=== PATIENT | female | born 1940 | race Caucasian/White ===

== ENCOUNTER 2016-12-22 10:34 | Emergency (ER) | payer MEDICARE, BC ==
--- NOTE | 2016-12-22 11:01 | EDM.PDOC ---
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 BP and pulse were nl. Please see nursing vitals report. No N/V/D or any acute medical issues. 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) - Related Data Allergies Allergy/AdvReac Type Severity Reaction Status Date / Time No Known Allergies Allergy Verified 10/13/13 08:25 Home Meds: Home Meds Levothyroxine [Synthroid] 50 mcg PO ACBRK 10/13/13 [History] Calcium Carbonate [Tums] 1 tab PO ASDIRECTED 01/26/14 [History] Ibuprofen [Advil] 2 tab PO TID 01/26/14 [History] Multivitamin [Multivitamins] 1 tab PO DAILY 01/26/14 [History] Gabapentin [Neurontin] 300 mg PO TID 01/27/14 [History] Ciprofloxacin HCl [Cipro] 500 mg PO BID #20 tablet 12/22/16 [Rx] Social & Family History - Tobacco Use Smoking Status *Q: Never Smoker - Alcohol Use Days Per Week of Alcohol Use: 0 - Recreational Drug Use Recreational Drug Use: No ED ROS GENERAL - Review of Systems Review Of Systems: See Below Constitutional: Reports: No Symptoms HEENT: Reports: No Symptoms Respiratory: Reports: No Symptoms Cardiovascular: Reports: No Symptoms Endocrine: Reports: No Symptoms GI/Abdominal: Reports: No Symptoms : Reports: No Symptoms Musculoskeletal: Reports: No Symptoms Skin: Reports: No Symptoms Neurological: Reports: No Symptoms Psychiatric: Reports: No Symptoms Hematologic/Lymphatic: Reports: No Symptoms Immunologic: Reports: No Symptoms ED EXAM, RENAL/ - Physical Exam Exam: See Below Exam Limited By: No Limitations General Appearance: Alert, WD/WN, No Apparent Distress Eye Exam: Bilateral Eye: Normal Inspection Ears: Normal External Exam Nose: Normal Inspection Throat/Mouth: Normal Inspection Head: Atraumatic, Normocephalic Neck: Normal Inspection, Supple, Non-Tender Respiratory/Chest: No Respiratory Distress, Lungs Clear, Normal Breath Sounds Cardiovascular: Normal Peripheral Pulses, Regular Rate, Rhythm, No Edema GI/Abdominal: Normal Bowel Sounds, Other (suprapubic tenderness) (Female) Exam: Deferred Rectal (Female) Exam: Deferred Back Exam: Normal Inspection Extremities: Normal Inspection Neurological: Alert, Oriented, CN II-XII Intact, Normal Cognition Psychiatric: Normal Affect, Normal Mood Skin Exam: Warm, Dry, Intact Lymphatic: No Adenopathy Course - Vital Signs Text/Narrative:: 76 years old w f came to the ed with her SO due to an 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 BP and pulse were nl. Please see nursing vitals report. No N/V/D or any acute medical issues. PE: Suprapubic tenderness Labs: UA pos for UTI Impression: UTI Tx: Cipro Reexam: Improved Plan: D/C with instructions - Orders/Labs/Meds Labs: Laboratory Tests 12/22/16 Range/Units 11:06 Urine Color Yellow (YELLOW) Urine Appearance Slightly cloudy (CLEAR) Urine pH 5.0 (5.0-6.5) Ur Specific [place] 1.015 (1.010-1.025) Urine Protein Negative (NEGATIVE) mg/dL Urine Glucose (UA) Normal (NEGATIVE) mg/dL Urine Ketones Negative (NEGATIVE) mg/dL Urine Occult Blood Negative (NEGATIVE) Urine Nitrite Positive H (NEGATIVE) Urine Bilirubin Negative (NEGATIVE) Urine Urobilinogen Normal (NEGATIVE) mg/dL Ur Leukocyte Esterase Large H (NEGATIVE) Urine RBC 0-5 (0) Urine WBC >100 H (0) Ur Squamous Epith Cells Rare (NS,R,O) Urine Bacteria Many H (NS) Departure - Departure Time of Disposition: 11:29 Disposition: Home, Self-Care 01 Condition: Good Clinical Impression: UTI (urinary tract infection) Qualifiers: Urinary tract infection type: acute cystitis Hematuria presence: without hematuria Qualified Code(s): N30.00 - Acute cystitis without hematuria - Discharge Information Prescriptions: Ciprofloxacin HCl [Cipro] 500 mg PO BID #20 tablet Instructions: Urinary Tract Infection, Adult Referrals: Iván Etienne MD [Primary Care Provider] - Forms: ED Department Discharge Additional Instructions: Please increase water intake, please take the meds as recommended, please f/u, come back if the symptoms get worse acutely
== END 2016-12-22 11:41 | disposition home or self-care (01) ==
LOC: FB.ED 10:34
DX: N30.00 Acute cystitis without hematuria (principal)
CPT/HCPCS: 81001; 87086; 87088; 87186; 99283

== ENCOUNTER 2018-04-02 07:09 | Day surgery (SDC) | payer BC, MEDICARE ==
[2018-04-02] MEDS ORDERED: Rocuronium 100 MG/10 ML MDV IV ONE (07:10)
[2018-04-02] MEDS ORDERED: Midazolam 1 MG/ML 2 ML SDV IV ONE (07:10)
[2018-04-02] MEDS ORDERED: Neostigmine Methylsulfate 10 MG/10 ML MDV IVPUSH ONE (07:10)
[2018-04-02] MEDS ORDERED: fentaNYL 100 MCG/2 ML SDV IV ONE (07:10)
[2018-04-02] MEDS ORDERED: Propofol 200 MG/20 ML SDV IV ONE (07:10)
[2018-04-02] MEDS ORDERED: Ondansetron 4 MG/2 ML SDV IVPUSH ONE (07:10)
[2018-04-02] MEDS ORDERED: Glycopyrrolate 0.2 MG/ML 5 ML MDV IV ONE (07:10)
[2018-04-02] MEDS ORDERED: Ketorolac 30 MG/ML SDV IVPUSH ONE (07:10)
[2018-04-02] MEDS ORDERED: Lactated Ringers 1,000 ML IV SCH (07:15)
[2018-04-02] MEDS ORDERED: ceFAZolin 1 GM in Sodium Chloride 0.9% 50 ML IV ONE (08:45)
[2018-04-02] MEDS ORDERED: ceFAZolin 1 GM Vial IVPUSH ONE (08:45)
[2018-04-02] MEDS ORDERED: Lidocaine 1% with EPINEPHrine 1:100,000 20 ML MDV ONE (09:00)
[2018-04-02] MEDS ORDERED: Bupivacaine 0.5% 30 ML SDV ONE (09:00)
[2018-04-02] MEDS ORDERED: Acetaminophen/HYDROcodone 325-5 MG Tab PO PRN (09:23)
--- NOTE | 2018-04-02 09:29 | PCM.OPNOTE ---
- General Post-Op/Procedure Note Date of Surgery/Procedure: 04/02/18 Operative Procedure(s): incisional hernia repair Findings: 3 cm defect repaired primarily Pre Op Diagnosis: incisional hernia of ant abd wall Post-Op Diagnosis: Same Anesthesia Technique: General LMA, Local (3 ml 1 % lido with epi /0.5% buvipicaine) Primary Surgeon: Duarte Capellan Anesthesia Provider: Martinez Garcia Pathology: none Complications: None Condition: Good Free Text/Narrative:: see dictation
--- NOTE | 2018-04-02 14:34 | OR ---
DATE OF OPERATION: 04/02/2018 SURGEON: Duarte Capellan MD PROCEDURE PERFORMED: Incisional hernia repair, anterior abdominal wall. PREOPERATIVE DIAGNOSIS: Incisional hernia of the anterior abdominal wall without obstruction or gangrene. POSTOPERATIVE DIAGNOSIS: Incisional hernia of the anterior abdominal wall without obstruction or gangrene. INDICATIONS FOR PROCEDURE: This is a 78-year-old white female who has had a reducible hernia located in the midline of an old Pfannenstiel incision. She was offered and accepted repair. DESCRIPTION OF OPERATION: After an excellent LMA anesthesia was administered, the patient was prepped and draped in usual sterile manner. A 1:1 mixture of 1% lidocaine with epinephrine 0.5% bupivacaine was used to infiltrate the patient's anterior abdominal wall. A vertical horizontal incision was carried out through the previous scar tissue. Combination of sharp dissection, electrocautery dissection was carried out exposing the hernia sac. The hernia sac was opened and the adhesed small intestine was carefully dissected free and reduced back to normal anatomic position. The excess sac was then excised. Given the size of the defect and the quality of the surrounding fascia, it did appear amenable to a primary repair. This was done by utilizing interrupted 0 Ethibond in a vest- over-pants type technique. The superior edge was then tacked to the inferior edge of the fascia as well after closing the defects. The area was irrigated. Fat was approximated with a running 3-0 Vicryl and satya were used to close the skin. Needle, sponge, and instrument counts were reported as correct. The patient was taken to recovery room in good condition. /[id number] /MODL
[2018-04-02 18:47] VITALS: BP 138/59
== END 2018-04-02 11:00 | disposition home or self-care (01) ==
LOC: FB.SDS 07:09
PROVIDERS: ATTEND Surgery
DX: K43.2 Incisional hernia without obstruction or gangrene (principal); E03.9 Hypothyroidism, unspecified; K21.9 Gastro-esophageal reflux disease without esophagitis; M15.9 Polyosteoarthritis, unspecified; M35.00 Sjogren syndrome, unspecified; M81.0 Age-related osteoporosis without current pathological fracture; G89.29 Other chronic pain; M54.5 Low back pain; Z79.899 Other long term (current) drug therapy; Z88.0 Allergy status to penicillin
CPT/HCPCS: 00832; 49560; J0690; J3490; J7120; J1885; J2250; J2405; J2704; J2710; J3010

== ENCOUNTER 2018-10-19 12:05 | Emergency (ER) | payer MEDICARE ==
--- NOTE | 2018-10-19 13:10 | EDM.PDOC ---
ED HPI GENERAL MEDICAL PROBLEM - General Chief Complaint: General Stated Complaint: CHEST PAIN Time Seen by Provider: 10/19/18 12:20 - History of Present Illness INITIAL COMMENTS - FREE TEXT/NARRATIVE: Patient is a 78 YO WF who presented to the ED because of chest and epigastric pain this morning. It's a dull ache,3/10 with associated nausea but no vomiting. She denies any dyspnea,cough and cold. No fever or chills. Enroute to the ED her pain went away and has been pain free since then. Onset: Today Onset Date: 10/19/18 Onset Time: 10:30 - Related Data Allergies Allergy/AdvReac Type Severity Reaction Status Date / Time Penicillins Allergy Nausea Verified 04/02/18 08:05 Home Meds: Home Meds Levothyroxine [Synthroid] 50 mcg PO ACBRK 10/13/13 [History] Ibuprofen [Advil] 400 tab PO BID PRN 01/26/14 [History] Multivitamin [Multivitamins] 1 tab PO DAILY 01/26/14 [History] Gabapentin [Neurontin] 300 mg PO TID 01/27/14 [History] Past Medical History HEENT History: Reports: None Cardiovascular History: Reports: None Respiratory History: Reports: None Gastrointestinal History: Reports: GERD Genitourinary History: Reports: Urinary Incontinence 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 Musculoskeletal History: Reports: Arthritis, Back Pain, Chronic, Osteoarthritis , Osteoporosis, Other (See Below) Other Musculoskeletal History: SJOGREN'S SYNDROME Neurological History: Reports: None Psychiatric History: Reports: None Endocrine/Metabolic History: Reports: Hypothyroidism Hematologic History: Reports: None Immunologic History: Reports: None Oncologic (Cancer) History: Reports: None Dermatologic History: Reports: None - Past Surgical History Head Surgeries/Procedures: Reports: None HEENT Surgical History: Reports: None GI Surgical History: Reports: Hernia, Abdominal Female Surgical History: Reports: Cystectomy, Hysterectomy, Oophorectomy, Other (See Below) Other Female Surgeries/Procedures: VAGINAL BLADDER SLING PROCEDURE Musculoskeletal Surgical History: Reports: Knee Replacement Other Musculoskeletal Surgeries/Procedures:: RIGHT TOTAL KNEE Social & Family History - Family History Family Medical History: Noncontributory - Caffeine Use Caffeine Use: Reports: None ED ROS GENERAL - Review of Systems Review Of Systems: See Below Constitutional: Reports: No Symptoms HEENT: Reports: No Symptoms Respiratory: Reports: No Symptoms Cardiovascular: Reports: Chest Pain Endocrine: Reports: No Symptoms GI/Abdominal: Reports: Abdominal Pain : Reports: No Symptoms Musculoskeletal: Reports: No Symptoms Skin: Reports: No Symptoms Neurological: Reports: No Symptoms Psychiatric: Reports: No Symptoms ED EXAM, GENERAL - Physical Exam Exam: See Below Exam Limited By: No Limitations General Appearance: Alert, No Apparent Distress Neck: Normal Inspection, Supple, Non-Tender Respiratory/Chest: No Respiratory Distress Cardiovascular: Normal Peripheral Pulses, Regular Rate, Rhythm, No Rub GI/Abdominal: Normal Bowel Sounds, Soft, No Organomegaly, Other (epigastric pain ) Back Exam: Normal Inspection Extremities: Normal Inspection, Normal Range of Motion, Non-Tender Neurological: Oriented Psychiatric: Normal Affect Skin Exam: Warm Course - Vital Signs Text/Narrative:: labs reviewed and discussed with rola ASA 324 mg PO x1 dose Trop-neg Last Recorded V/S: Last Vital Signs Temp 36.6 C 10/19/18 12:15 Pulse 58 L 10/19/18 12:15 Resp 15 10/19/18 12:15 BP 161/56 H 10/19/18 12:15 Pulse Ox 95 10/19/18 12:15 - Orders/Labs/Meds Orders: Active Orders 24 hr Category Date Time Status EKG Documentation Completion [RC] ASDIRECTED Care 10/19/18 12:36 Active CBC WITH AUTO DIFF [HEME] Stat Lab 10/19/18 12:36 Received EKG 12 Lead [EK] Routine Ther 10/19/18 12:34 Ordered Labs: Laboratory Tests 10/19/18 10/19/18 Range/Units 12:36 12:36 Sodium 139 (135-145) mmol/L Potassium 4.0 (3.5-5.3) mmol/L Chloride 104 (100-110) mmol/L Carbon Dioxide 27 (21-32) mmol/L BUN 16 (7-18) mg/dL Creatinine 0.8 (0.55-1.02) mg/dL Est Cr Clr Drug Dosing TNP Estimated GFR (MDRD) > 60 (>60) BUN/Creatinine Ratio 20.0 (9-20) Glucose 121 H (80-116) mg/dL Calcium 8.9 (8.6-10.2) mg/dL Troponin I < 0.017 L (<0.017-0.056) ng/mL Departure - Departure Time of Disposition: 13:10 Disposition: Home, Self-Care 01 Clinical Impression: Chest pain at rest - Discharge Information Instructions: Nonspecific Chest Pain, [id number] Referrals: Lesia Alejo W[employer] RIGHT[employer] SPECIALIST [Primary Care Provider] - Forms: ED Department Discharge Additional Instructions: Please read discharge instructions on chest pain follow up with your doctor this week - My Orders Last 24 Hours: My Active Orders 10/19/18 12:34 EKG 12 Lead [EK] Routine 10/19/18 12:36 EKG Documentation Completion [RC] ASDIRECTED CBC WITH AUTO DIFF [HEME] Stat - Assessment/Plan Last 24 Hours: My Active Orders 10/19/18 12:34 EKG 12 Lead [EK] Routine 10/19/18 12:36 EKG Documentation Completion [RC] ASDIRECTED CBC WITH AUTO DIFF [HEME] Stat
[2018-10-19 19:54] VITALS: BP 143/55
== END 2018-10-19 13:30 | disposition home or self-care (01) ==
LOC: FB.ED 12:05
DX: R07.89 Other chest pain (principal); E03.9 Hypothyroidism, unspecified; Z88.0 Allergy status to penicillin; Z79.899 Other long term (current) drug therapy
CPT/HCPCS: 36415; 80048; 84484; 85025; 93005; 99283-25

== ENCOUNTER 2020-07-24 11:28 | Emergency (ER) | payer MEDICARE ==
[2020-07-24 11:41] VITALS: BP 166/71; PULSE 55
--- NOTE | 2020-07-24 13:18 | EDM.PDOC ---
ED HPI GENERAL MEDICAL PROBLEM - General Chief Complaint: General Stated Complaint: Chest pain Time Seen by Provider: 07/24/20 11:30 Source of Information: Reports: Patient History Limitations: Reports: No Limitations - History of Present Illness INITIAL COMMENTS - FREE TEXT/NARRATIVE: Patient presented to the ED from the clinic because of on and of chest pain for 1 week. The pain is dull over the sternal area with associated burping. There is no nausea,vomiting, dyspnea or diaphoresis. - Related Data Allergies Allergy/AdvReac Type Severity Reaction Status Date / Time Penicillins Allergy Nausea Verified 07/24/20 11:39 Home Meds: Home Meds Levothyroxine [Synthroid] 50 mcg PO DAILY 10/13/13 [History] Gabapentin [Neurontin] 300 mg PO TID 01/27/14 [History] Acetaminophen [Acetaminophen ER] 1,300 mg PO BID 07/24/20 [History] Lactobacillus Acidophilus [Probiotic Acidophilus] 1.5 mg PO DAILY 07/24/20 [History] Naproxen 500 mg PO BID #30 tablet 07/24/20 [Rx] atorvaSTATin [Lipitor] 10 mg PO BEDTIME 07/24/20 [History] Past Medical History HEENT History: Reports: None Cardiovascular History: Reports: High Cholesterol Respiratory History: Reports: None Gastrointestinal History: Reports: GERD Genitourinary History: Reports: Urinary Incontinence 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 Musculoskeletal History: Reports: Arthritis, Back Pain, Chronic, Osteoarthritis, Osteoporosis, Other (See Below) Other Musculoskeletal History: SJOGREN'S SYNDROME Neurological History: Reports: None Psychiatric History: Reports: None Endocrine/Metabolic History: Reports: Hypothyroidism Hematologic History: Reports: None Immunologic History: Reports: None Oncologic (Cancer) History: Reports: None Dermatologic History: Reports: None - Past Surgical History GI Surgical History: Reports: Hernia, Abdominal Female Surgical History: Reports: Cystectomy, Hysterectomy, Oophorectomy, Other (See Below) Other Female Surgeries/Procedures: VAGINAL BLADDER SLING PROCEDURE Musculoskeletal Surgical History: Reports: Knee Replacement Other Musculoskeletal Surgeries/Procedures:: RIGHT TOTAL KNEE Social & Family History - Family History Family Medical History: No Pertinent Family History - Caffeine Use Caffeine Use: Reports: None ED ROS GENERAL - Review of Systems Review Of Systems: See Below Constitutional: Reports: No Symptoms HEENT: Reports: No Symptoms Respiratory: Reports: No Symptoms Cardiovascular: Reports: Chest Pain Endocrine: Reports: No Symptoms GI/Abdominal: Reports: No Symptoms : Reports: No Symptoms Musculoskeletal: Reports: No Symptoms Skin: Reports: No Symptoms Neurological: Reports: No Symptoms Psychiatric: Reports: No Symptoms ED EXAM, GENERAL - Physical Exam Exam: See Below Exam Limited By: No Limitations General Appearance: Alert, No Apparent Distress Ears: Normal External Exam, Normal Canal, Hearing Grossly Normal Nose: Normal Inspection, Normal Mucosa, No Blood Throat/Mouth: Normal Inspection, Normal Lips, Normal Teeth, Normal Gums Head: Atraumatic, Normocephalic Neck: Normal Inspection, Supple, Non-Tender, Full Range of Motion Respiratory/Chest: No Respiratory Distress, Lungs Clear, Normal Breath Sounds, No Accessory Muscle Use, Chest Non-Tender Cardiovascular: Normal Peripheral Pulses, Regular Rate, Rhythm, No Edema, No Gallop, No JVD, No Murmur, No Rub GI/Abdominal: Normal Bowel Sounds, Soft, Non-Tender, No Organomegaly, No Distention, No Abnormal Bruit Back Exam: Normal Inspection, Full Range of Motion Extremities: Normal Inspection, Normal Range of Motion, Non-Tender Neurological: Alert, Oriented, CN II-XII Intact #1 Interpretation EKG Date: 07/24/20 Time: 11:37 Rhythm: Other (Sinus Braday) Rate (Beats/Min): 49 [place]: Normal P-Wave: Present QRS: Normal ST-T: Normal QT: Normal Comparison: NA - No Prior EKG EKG Interpretation Comments: Sinus Bradycardia Course - Vital Signs Text/Narrative:: Lab/EKG result was reviewed and discussed with patient. She was chest pain free all throughout her stay in the ED. Last Recorded V/S: Last Vital Signs Temp 36.6 C 07/24/20 11:28 Pulse 55 L 07/24/20 11:28 Resp 13 07/24/20 11:28 BP 166/71 H 07/24/20 11:28 Pulse Ox 95 07/24/20 11:28 - Orders/Labs/Meds Labs: Laboratory Tests 07/24/20 07/24/20 07/24/20 Range/Units 11:50 11:50 11:50 WBC 7.6 (3.0-10.3) x10-3/uL RBC 4.29 (3.60-5.20) x10(6)uL Hgb 13.2 (11.4-15.5) g/dL Hct 39.7 (34.2-48.2) % MCV 92.5 (76.7-100.5) fL MCH 30.8 (23.9-33.9) pg MCHC 33.3 (31.9-34.8) g/dL RDW 13.3 (12.3-16.5) % Plt Count 363 (151-488) x10(3)uL MPV 6.9 L (7.1-12.4) fL Neut % (Auto) 70.7 (30.8-76.2) % Lymph % (Auto) 17.5 L (18.4-52.1) % [place] % (Auto) 10.3 (4.4-15.7) % Eos % (Auto) 1.0 (0.6-8.1) % Baso % (Auto) 0.5 (0.2-1.5) % Neut # (Auto) 5.4 (1.5-6.3) x10-3/uL Lymph # (Auto) 1.3 (1.0-4.4) x10-3/uL [place] # (Auto) 0.8 (0.3-1.0) x10-3/uL Eos # (Auto) 0.1 (0.0-0.8) x10-3/uL Baso # (Auto) 0.0 (0.0-0.1) x10-3/uL D-Dimer, Quantitative 1.29 H (0.0-0.59) mg/LFEU Sodium 139 (135-145) mmol/L Potassium 4.2 (3.5-5.3) mmol/L Chloride 103 (100-110) mmol/L Carbon Dioxide 27 (21-32) mmol/L BUN 11 (7-18) mg/dL Creatinine 0.9 (0.55-1.02) mg/dL Est Cr Clr Drug Dosing 49.29 mL/min Estimated GFR (MDRD) > 60 (>60) BUN/Creatinine Ratio 12.2 (9-20) Glucose 100 (80-116) mg/dL Calcium 8.2 L (8.6-10.2) mg/dL Total Bilirubin 0.7 (0.1-1.3) mg/dL AST 35 H (5-25) IU/L ALT 89 H (12-36) U/L Alkaline Phosphatase 118 H (56-112) IU/L Troponin I (4.0-60.3) pg/mL Total Protein 7.1 (6.0-8.0) g/dL Albumin 3.4 (3.2-4.6) g/dL Globulin 3.7 g/dL Albumin/Globulin Ratio 0.9 /03/15 Range/Units 11:50 WBC (3.0-10.3) x10-3/uL RBC (3.60-5.20) x10(6)uL Hgb (11.4-15.5) g/dL Hct (34.2-48.2) % MCV (76.7-100.5) fL MCH (23.9-33.9) pg MCHC (31.9-34.8) g/dL RDW (12.3-16.5) % Plt Count (151-488) x10(3)uL MPV (7.1-12.4) fL Neut % (Auto) (30.8-76.2) % Lymph % (Auto) (18.4-52.1) % [place] % (Auto) (4.4-15.7) % Eos % (Auto) (0.6-8.1) % Baso % (Auto) (0.2-1.5) % Neut # (Auto) (1.5-6.3) x10-3/uL Lymph # (Auto) (1.0-4.4) x10-3/uL [place] # (Auto) (0.3-1.0) x10-3/uL Eos # (Auto) (0.0-0.8) x10-3/uL Baso # (Auto) (0.0-0.1) x10-3/uL D-Dimer, Quantitative (0.0-0.59) mg/LFEU Sodium (135-145) mmol/L Potassium (3.5-5.3) mmol/L Chloride (100-110) mmol/L Carbon Dioxide (21-32) mmol/L BUN (7-18) mg/dL Creatinine (0.55-1.02) mg/dL Est Cr Clr Drug Dosing mL/min Estimated GFR (MDRD) (>60) BUN/Creatinine Ratio (9-20) Glucose (80-116) mg/dL Calcium (8.6-10.2) mg/dL Total Bilirubin (0.1-1.3) mg/dL AST (5-25) IU/L ALT (12-36) U/L Alkaline Phosphatase (56-112) IU/L Troponin I 7.9 (4.0-60.3) pg/mL Total Protein (6.0-8.0) g/dL Albumin (3.2-4.6) g/dL Globulin g/dL Albumin/Globulin Ratio Departure - Departure Time of Disposition: 21:30 Disposition: Home, Self-Care 01 Condition: Good Clinical Impression: Atypical chest pain - Discharge Information Prescriptions: Naproxen 500 mg PO BID #30 tablet Instructions: Nonspecific Chest Pain, Adult, [id number] Referrals: Amina Martinez PA-C [Primary Care Provider] - Forms: ED Department Discharge Additional Instructions: Please read discharge instructions on atypical chest pain Take naproxen 500 mg twice daily for 7 days Follow up if symptoms persist Sepsis Event Note (ED) - Evaluation Sepsis Screening Result: No Definite Risk - Focused Exam Vital Signs: Vital Signs Temp Pulse Resp BP Pulse Ox 07/24/20 11:28 36.6 C 55 L 13 166/71 H 95
== END 2020-07-24 13:35 | disposition home or self-care (01) ==
LOC: FB.ED 11:28
DX: R07.89 Other chest pain (principal); E78.00 Pure hypercholesterolemia, unspecified; E03.9 Hypothyroidism, unspecified; Z79.899 Other long term (current) drug therapy; Z88.0 Allergy status to penicillin
CPT/HCPCS: 36415; 80053; 84484; 85025; 85379; 93005; 99285-25

== ENCOUNTER 2020-08-08 02:45 | Inpatient (IN) | payer MEDICARE ==
[2020-08-08] MEDS ORDERED: Sodium Chloride 0.9% 1,000 ML IV ONE (03:15)
[2020-08-08] MEDS ORDERED: Ondansetron 4 MG/2 ML SDV IVPUSH ONE ×2 (03:15→04:50)
[2020-08-08] MEDS ORDERED: Morphine 2 MG/ML SYRINGE IVPUSH ONE (03:20)
--- NOTE | 2020-08-08 06:40 | EDM.PDOC ---
ED HPI GENERAL MEDICAL PROBLEM - General Stated Complaint: STOMACH PAIN Time Seen by Provider: 08/08/20 05:00 Source of Information: Reports: Patient History Limitations: Reports: No Limitations - History of Present Illness INITIAL COMMENTS - FREE TEXT/NARRATIVE: Patient is a 80 YO WF who presented to the ED because of abdominal pain which started yesterday and is progressively getting worse. The pain is sharp and squeezing over the LLQ, RLQ and epigastric area. There is associated nausea, vomiting, and diarrhea. She vomited 3 times since yesterday. She also c/o chills but no fever. No urinary symptoms. - Related Data Allergies Allergy/AdvReac Type Severity Reaction Status Date / Time Penicillins Allergy Nausea Verified 07/24/20 11:39 Home Meds: Home Meds Levothyroxine [Synthroid] 50 mcg PO DAILY 10/13/13 [History] Gabapentin [Neurontin] 300 mg PO TID 01/27/14 [History] Acetaminophen [Acetaminophen ER] 1,300 mg PO BID 07/24/20 [History] Lactobacillus Acidophilus [Probiotic Acidophilus] 1.5 mg PO DAILY 07/24/20 [History] Naproxen 500 mg PO BID #30 tablet 07/24/20 [Rx] atorvaSTATin [Lipitor] 10 mg PO BEDTIME 07/24/20 [History] Past Medical History HEENT History: Reports: None Cardiovascular History: Reports: High Cholesterol Respiratory History: Reports: None Gastrointestinal History: Reports: GERD Genitourinary History: Reports: Urinary Incontinence [employer] History: 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 Musculoskeletal History: Reports: Arthritis, Back Pain, Chronic, Osteoarthritis, Osteoporosis, Other (See Below) Other Musculoskeletal History: SJOGREN'S SYNDROME Neurological History: Reports: None Psychiatric History: Reports: None Endocrine/Metabolic History: Reports: Hypothyroidism Hematologic History: Reports: None Immunologic History: Reports: None Oncologic (Cancer) History: Reports: None Dermatologic History: Reports: None - Past Surgical History GI Surgical History: Reports: Hernia, Abdominal Female Surgical History: Reports: Cystectomy, Hysterectomy, Oophorectomy, Other (See Below) Other Female Surgeries/Procedures: VAGINAL BLADDER SLING PROCEDURE Musculoskeletal Surgical History: Reports: Knee Replacement Other Musculoskeletal Surgeries/Procedures:: RIGHT TOTAL KNEE Social & Family History - Family History Family Medical History: No Pertinent Family History - Caffeine Use Caffeine Use: Reports: Coffee ED ROS GENERAL - Review of Systems Review Of Systems: See Below Constitutional: Reports: Chills HEENT: Reports: No Symptoms Respiratory: Reports: No Symptoms Cardiovascular: Reports: No Symptoms Endocrine: Reports: No Symptoms GI/Abdominal: Reports: Abdominal Pain : Reports: No Symptoms Musculoskeletal: Reports: No Symptoms Skin: Reports: No Symptoms Neurological: Reports: No Symptoms Psychiatric: Reports: No Symptoms ED EXAM, GI/ABD - Physical Exam Exam: See Below Exam Limited By: No Limitations General Appearance: Alert, No Apparent Distress Ears: Normal External Exam, Normal Canal Nose: Normal Inspection, Normal Mucosa, No Blood Throat/Mouth: Normal Inspection Head: Atraumatic, Normocephalic Neck: Normal Inspection, Supple, Non-Tender, Full Range of Motion Respiratory/Chest: No Respiratory Distress, Lungs Clear, Normal Breath Sounds Cardiovascular: Normal Peripheral Pulses, Regular Rate, Rhythm, No Edema GI/Abdominal Exam: Normal Bowel Sounds, Soft, No Organomegaly, Other (tenderness over the LLQ/RLQ and epigastric area) Back Exam: Normal Inspection, Full Range of Motion Extremities: Normal Inspection, Normal Range of Motion, Non-Tender Neurological: Alert, Oriented, CN II-XII Intact Course - Vital Signs Text/Narrative:: Lab/CT result was reviewed and discussed with patient NS 1 L bolus Zofran 4 mg IV x 2 doses Compazine 10 mg IV x1 Code Status: Full Code Surgery consult @ [place] Dr. Perkins who want patient to have NGT with intermittent suction - Orders/Labs/Meds Orders: Active Orders 24 hr Category Date Time Status Abdomen Pelvis w Cont [CT] Stat Exams 08/08/20 04:30 Taken CULTURE URINE [RM] Routine Lab 08/08/20 03:10 Received Sodium Chloride 0.9% [Normal Saline] 1,000 ml Med 08/08/20 08:00 Active IV ASDIRECTED NG [Nasogastric Orogastric Tube Insertion] [OM.PC] Oth 08/08/20 07:55 Ordered Routine NG [Nasogastric Orogastric Tube Insertion] [OM.PC] Oth 08/08/20 07:55 Ordered Routine Medication Orders Ceftriaxone Sodium (Ceftriaxone 1 Gm Vial) 1 gm IVPUSH Q24H SURJIT Enoxaparin Sodium (Enoxaparin 40 Mg/0.4 Ml Syringe) 40 mg SUBCUT Q24H SURJIT Sodium Chloride (Normal Saline) 1,000 mls @ 125 mls/hr IV ASDIRECTED [facility] Last Admin: 08/08/20 08:07 Dose: 125 mls/hr Documented by: DIFFCAL Morphine Sulfate (Morphine 2 Mg/Ml Syringe) 2 mg IVPUSH Q2H PRN PRN Reason: Pain Ondansetron HCl (Ondansetron 4 Mg/2 Ml Sdv) 4 mg IV Q4H PRN PRN Reason: Nausea/Vomiting Ondansetron HCl (Ondansetron 4 Mg/2 Ml Sdv) 4 mg IVPUSH Q4H PRN PRN Reason: Nausea/Vomiting Labs: Laboratory Tests 08/08/20 08/08/20 08/08/20 Range/Units 03:10 03:10 03:10 WBC 17.7 H (3.0-10.3) x10-3/uL RBC 5.04 (3.60-5.20) x10(6)uL Hgb 15.5 (11.4-15.5) g/dL Hct 46.8 (34.2-48.2) % MCV 92.9 (76.7-100.5) fL MCH 30.7 (23.9-33.9) pg MCHC 33.0 (31.9-34.8) g/dL RDW 12.9 (12.3-16.5) % Plt Count 395 (151-488) x10(3)uL MPV 7.3 (7.1-12.4) fL Add Manual Diff Yes Neutrophils % (Manual) 83 H (46-82) % Band Neutrophils % 3 (0-6) % Lymphocytes % (Manual) 9 L (13-37) % Monocytes % (Manual) 5 (4-12) % Sodium 142 (135-145) mmol/L Potassium 4.3 (3.5-5.3) mmol/L Chloride 101 (100-110) mmol/L Carbon Dioxide 29 (21-32) mmol/L BUN 17 (7-18) mg/dL Creatinine 1.0 (0.55-1.02) mg/dL Est Cr Clr Drug Dosing TNP Estimated GFR (MDRD) 53 L (>60) BUN/Creatinine Ratio 17.0 (9-20) Glucose 172 H (80-116) mg/dL Calcium 9.1 (8.6-10.2) mg/dL Total Bilirubin 0.5 (0.1-1.3) mg/dL AST 26 H D (5-25) IU/L ALT 28 D (12-36) U/L Alkaline Phosphatase 117 H (56-112) IU/L Total Protein 8.5 H (6.0-8.0) g/dL Albumin 3.9 (3.2-4.6) g/dL Globulin 0.5 g/dL Albumin/Globulin Ratio 7.8 Amylase 28 (25-115) U/L Lipase (73-393) U/L Urine Color Yellow (YELLOW) Urine Appearance Cloudy (CLEAR) Urine pH 5.0 (5.0-6.5) Ur Specific [place] 1.030 H (1.010-1.025) Urine Protein 30 H (NEGATIVE) mg/dL Urine Glucose (UA) Normal (NORMAL) mg/dL Urine Ketones 15 H (NEGATIVE) mg/dL Urine Occult Blood Moderate H (NEGATIVE) Urine Nitrite Positive H (NEGATIVE) Urine Bilirubin Negative (NEGATIVE) Urine Urobilinogen Normal (NEGATIVE) mg/dL Ur Leukocyte Esterase Large H (NEGATIVE) Urine RBC 20-30 H (0-5) Urine WBC 5-10 H (0-5) Ur Epithelial Cells Few Urine Bacteria Many H (NS) SARS-CoV-2 RNA (NEAL) (NEGATIVE) 08/08/20 08/08/20 Range/Units 03:10 06:25 WBC (3.0-10.3) x10-3/uL RBC (3.60-5.20) x10(6)uL Hgb (11.4-15.5) g/dL Hct (34.2-48.2) % MCV (76.7-100.5) fL MCH (23.9-33.9) pg MCHC (31.9-34.8) g/dL RDW (12.3-16.5) % Plt Count (151-488) x10(3)uL MPV (7.1-12.4) fL Add Manual Diff Neutrophils % (Manual) (46-82) % Band Neutrophils % (0-6) % Lymphocytes % (Manual) (13-37) % Monocytes % (Manual) (4-12) % Sodium (135-145) mmol/L Potassium (3.5-5.3) mmol/L Chloride (100-110) mmol/L Carbon Dioxide (21-32) mmol/L BUN (7-18) mg/dL Creatinine (0.55-1.02) mg/dL Est Cr Clr Drug Dosing Estimated GFR (MDRD) (>60) BUN/Creatinine Ratio (9-20) Glucose (80-116) mg/dL Calcium (8.6-10.2) mg/dL Total Bilirubin (0.1-1.3) mg/dL AST (5-25) IU/L ALT (12-36) U/L Alkaline Phosphatase (56-112) IU/L Total Protein (6.0-8.0) g/dL Albumin (3.2-4.6) g/dL Globulin g/dL Albumin/Globulin Ratio Amylase (25-115) U/L Lipase 31 L (73-393) U/L Urine Color (YELLOW) Urine Appearance (CLEAR) Urine pH (5.0-6.5) Ur Specific [place] (1.010-1.025) Urine Protein (NEGATIVE) mg/dL Urine Glucose (UA) (NORMAL) mg/dL Urine Ketones (NEGATIVE) mg/dL Urine Occult Blood (NEGATIVE) Urine Nitrite (NEGATIVE) Urine Bilirubin (NEGATIVE) Urine Urobilinogen (NEGATIVE) mg/dL Ur Leukocyte Esterase (NEGATIVE) Urine RBC (0-5) Urine WBC (0-5) Ur Epithelial Cells Urine Bacteria (NS) SARS-CoV-2 RNA (NEAL) Negative (NEGATIVE) Meds: Medications Generic Name Dose Route Start Last Admin Trade Name Freq PRN Reason Stop Dose Admin Ceftriaxone Sodium 1 gm 08/08/20 14:30 Ceftriaxone 1 Gm Vial IVPUSH Q24H SURJIT Enoxaparin Sodium 40 mg 08/08/20 14:30 Enoxaparin 40 Mg/0.4 Ml Syringe SUBCUT Q24H [facility] Sodium Chloride 1,000 mls @ 125 mls/hr 08/08/20 08:00 08/08/20 08:07 Normal Saline IV 125 mls/hr ASDIRECTED SURJIT Administration Morphine Sulfate 2 mg 08/08/20 14:23 Morphine 2 Mg/Ml Syringe IVPUSH Q2H PRN Pain Ondansetron HCl 4 mg 08/08/20 14:23 Ondansetron 4 Mg/2 Ml Sdv IV Q4H PRN Nausea/Vomiting Ondansetron HCl 4 mg 08/08/20 14:23 Ondansetron 4 Mg/2 Ml Sdv IVPUSH Q4H PRN Nausea/Vomiting Discontinued Medications Generic Name Dose Route Start Last Admin Trade Name Alvino PRN Reason Stop Dose Admin Ceftriaxone Sodium 1 gm 08/08/20 09:08 08/08/20 09:13 Ceftriaxone 1 Gm Vial IVPUSH 08/08/20 09:09 1 gm NOW STA Administration Ceftriaxone Sodium 1 gm/ 50 mls @ 200 mls/hr 08/08/20 07:52 08/08/20 09:13 Sodium Chloride IV 08/08/20 08:06 Not Given NOW STA Sodium Chloride 1,000 mls @ as directed 08/08/20 03:15 Normal Saline IV 08/08/20 03:16 .STK-MED ONE Iopamidol 100 ml 08/08/20 07:25 08/08/20 05:00 Iopamidol 755 Mg/Ml 100 Ml Bottle IV 08/08/20 07:26 100 ml . DIRECTED ONE Administration Morphine Sulfate 2 mg 08/08/20 03:20 Morphine 2 Mg/Ml Syringe IVPUSH 08/08/20 03:21 .STK-MED ONE Ondansetron HCl 4 mg 08/08/20 03:15 Ondansetron 4 Mg/2 Ml Sdv IVPUSH 08/08/20 03:16 .STK-MED ONE Ondansetron HCl 4 mg 08/08/20 04:50 Ondansetron 4 Mg/2 Ml Sdv IVPUSH 08/08/20 04:51 .STK-MED ONE Prochlorperazine Edisylate 10 mg 08/08/20 06:48 08/08/20 06:52 Prochlorperazine 10 Mg/2 Ml Sdv IVPUSH 08/08/20 06:49 10 mg NOW STA Administration Departure - Departure Time of Disposition: 06:30 Disposition: Admitted As Inpatient 67 Condition: Good Clinical Impression: SBO (small bowel obstruction), Cholelithiasis UTI (urinary tract infection) Qualifiers: Urinary tract infection type: acute cystitis Hematuria presence: without hematuria Qualified Code(s): N30.00 - Acute cystitis without hematuria - Discharge Information - My Orders Last 24 Hours: My Active Orders 08/08/20 03:10 CULTURE URINE [RM] Routine 08/08/20 04:30 Abdomen Pelvis w Cont [CT] Stat 08/08/20 07:55 NG [Nasogastric Orogastric Tube Insertion] [OM.PC] Routine NG [Nasogastric Orogastric Tube Insertion] [OM.PC] Routine 08/08/20 08:00 Sodium Chloride 0.9% [Normal Saline] 1,000 ml IV ASDIRECTED - Assessment/Plan Last 24 Hours: My Active Orders 08/08/20 03:10 CULTURE URINE [RM] Routine 08/08/20 04:30 Abdomen Pelvis w Cont [CT] Stat 08/08/20 07:55 NG [Nasogastric Orogastric Tube Insertion] [OM.PC] Routine NG [Nasogastric Orogastric Tube Insertion] [OM.PC] Routine 08/08/20 08:00 Sodium Chloride 0.9% [Normal Saline] 1,000 ml IV ASDIRECTED
[2020-08-08] MEDS ORDERED: Prochlorperazine 10 MG/2 ML SDV IVPUSH STA (06:48)
[2020-08-08] MEDS ORDERED: Iopamidol 755 Mg/ML 100 ML Bottle IV ONE (07:25)
[2020-08-08] MEDS ORDERED: cefTRIAXone 1 GM in Sodium Chloride 0.9% 50 ML IV STA (07:52)
[2020-08-08] MEDS: Sodium Chloride 0.9% 1,000 ML IV SCH ×2 (08:07→17:47)
[2020-08-08] MEDS ORDERED: cefTRIAXone 1 GM Vial IVPUSH STA (09:08)
[2020-08-08] MEDS ORDERED: Ondansetron 4 MG/2 ML SDV IV PRN (14:23)
[2020-08-08] MEDS ORDERED: Morphine 2 MG/ML SYRINGE IVPUSH PRN (14:23)
[2020-08-08] MEDS ORDERED: Ondansetron 4 MG/2 ML SDV IVPUSH PRN (14:23)
[2020-08-08] MEDS: Enoxaparin 40 MG/0.4 ML Syringe SUBCUT SCH (16:06)
--- NOTE | 2020-08-08 16:24 | HP ---
ADMISSION DATE: 08/08/2020 CHIEF COMPLAINT: Abdominal pain. HISTORY OF PRESENT ILLNESS: Mrs. Smith is a 80-year-old woman from [place], [place] with a history of osteoarthritis with spinal stenosis, hyperlipidemia, hypothyroidism, and GERD. According to the patient, she was in her normal state of health until yesterday evening when she began to have sweats, chills, vomiting, and then diarrhea. This persisted into today, so she came into the emergency room where she was evaluated. A CT of the abdomen was done that suggested a partial small-bowel obstruction. She is now admitted for NG suction and closer care. Ms. Smith states she had 1 episode similar to this back in December where she had sweats, chills, nausea, and diarrhea. She vomited once at that time and it spontaneously resolved. She has not had UTI symptoms, hematochezia, melena. She has had previous abdominal surgeries. PAST MEDICAL HISTORY: She had incisional herniorrhaphy in 2018 from previous surgery for bladder lift and BSO. She had a vaginal hysterectomy years ago. She is status post right total knee arthroplasty. She has osteoarthritis in her left knee. She has a history of hyperlipidemia, hypothyroidism, and GERD. MEDICATIONS: 1. Atorvastatin 10 mg at bedtime. 2. Naproxen 500 mg b.i.d. 3. Levothyroxine 50 mcg daily. 4. Probiotic 1 daily. 5. Gabapentin 300 mg t.i.d. 6. Tylenol Arthritis 2 tabs b.i.d. 1300 mg b.i.d. ALLERGIES: Penicillins cause nausea. HABITS: Nonsmoker and nondrinker. FAMILY AND SOCIAL HISTORY: The patient's parents both in the upper 80s of congestive heart failure. They both had colon cancer. She has been for 59 years. She has 4 children and she is accompanied by 1 daughter today. She has another daughter in [place], a son in [place], and a son in [place]. REVIEW OF SYSTEMS: GENERAL: No seizure, syncope, or recent seizure or weight change. SKIN: Negative for new rash. HEENT: She does report she needs cataract surgery. No recent change in hearing. No sore throat or URI. No cough or purulent sputum. No chest pain or palpitations. She has had some abdominal pain as she is currently comfortable. See HPI for further details of the GI symptoms. No hematuria or UTI symptoms. She does report osteoarthritis primarily of the left knee, but also of the hands. PHYSICAL EXAMINATION: GENERAL: She is alert, comfortable. She is a good historian. VITAL SIGNS: None listed. SKIN: Anicteric, warm, dry. She does have inframammary and infrapannicular intertrigo. There is a healed right knee arthroplasty scar. HEENT: Shows clear TMs. Pupils are equal and reactive. Oropharynx is clear. NG tube is in place. LUNGS: Clear to the bases. HEART: Regular. There is a 2 to 3/6 systolic murmur over the mitral area. ABDOMEN: Obese, soft, nontender. Bowel sounds are present. No mass, guarding, or rebound. EXTREMITIES: Show good pedal pulses. No significant edema. LABORATORY DATA: White count 17,700, hemoglobin 15.5, segs 83, bands 3, lymphocytes 9, monos 5. Electrolytes normal. BUN 17, creatinine 1.0. AST 26, ALT 28, alkaline phosphatase 117, protein 8.5. Urinalysis positive nitrites, 20 to 30 red cells, 5 to [address] cells[address] COVID negative. CT report suggests a partial small-bowel obstruction. ASSESSMENT: 1. Abdominal pain, vomiting, and diarrhea. Question small bowel obstruction. 2. History of abdominal hernias with bladder suspension, bilateral salpingo- oophorectomy, and subsequent incisional herniorrhaphy. 3. Chronic low back pain, on gabapentin. 4. Osteoarthritis, left knee. 5. Hyperlipidemia. 6. Hypothyroidism. 7. Inframammary and infrapannicular intertrigo. 8. Systolic heart murmur. PLAN: She is admitted with NG tube for suction in place. I anticipate a short hospitalization with hopeful return to normal bowel function and subsequent discharge to home. We will plan echocardiogram for her systolic heart murmur while she is here. /[id number] RO/MODL
[2020-08-08] MEDS ORDERED: Lidocaine 2% Viscous Solution 15 ML Cup PO PRN (16:33)
[2020-08-08] MEDS ORDERED: PEG 400/Propylene Glycol Ophth Soln 15 ML Bottle EYEBOTH PRN ×2 (16:40)
[2020-08-08] MEDS: PROPYLENE GLYCOL EYEBOTH SCH (20:52)
[2020-08-08] MEDS: PEG EYEBOTH SCH (20:52)
[2020-08-08] MEDS: [UNRECOGNIZED DRUG - OTHER] EYEBOTH SCH (21:00)
[2020-08-09] MEDS: Sodium Chloride 0.9% 1,000 ML IV SCH ×3 (00:59→21:28)
[2020-08-09] MEDS: Levothyroxine 50 MCG Tab PO SCH (06:24)
[2020-08-09] MEDS: [UNRECOGNIZED DRUG - OTHER] EYEBOTH SCH ×2 (08:13→20:49)
[2020-08-09] MEDS: [UNRECOGNIZED DRUG - OTHER] EYEBOTH SCH ×2 (08:13→20:49)
[2020-08-09] MEDS: cefTRIAXone 1 GM Vial IVPUSH SCH (08:47)
--- NOTE | 2020-08-09 10:20 | CR ---
INDICATION: Small bowel obstruction. ABDOMEN TWO-VIEW: Four images of the abdomen were obtained in supine and upright projections 08/09/20 and compared with 06/22/20 lumbar spine x-ray AP. Multiple stepladder air-fluid levels are noted with dilatation of small bowel compatible with distal small bowel obstruction which would appear to be in the lower abdomen. No other organomegaly or definite mass lesion could be identified. No evidence of free air was seen. What appears to be a nasogastric tube is noted with its tip in the distal esophagus. IMPRESSION: Findings are compatible with a small bowel obstruction. It should be in the distal small bowel. MTDD
--- NOTE | 2020-08-09 12:27 | PN ---
DATE SEEN: 08/09/2020 HISTORY: Ms. Smith is a 80-year-old woman with a history of spinal stenosis, osteoarthritis, and hypothyroidism. She was admitted from the emergency room because of chills, sweats, nausea, vomiting, and diarrhea and was found to have partial small bowel obstruction. On admission, an NG was placed, and she was made n.p.o. Her thyroid medication was continued, and she was allowed ice chips and sips of clear liquids. Admission laboratory showed a white count of 17,700 with 83 segs, 3 bands, and minimally elevated liver enzymes with urinalysis suggestive of urinary tract infection. Culture has shown gram-negative rods. The patient has been treated with IV Rocephin for the urinary tract infection. Morphine p.r.n., Zofran p.r.n., and IV fluid. She is examined in her bed this morning. She states she is comfortable. She has had some mild abdominal crampiness. PHYSICAL EXAMINATION: VITAL SIGNS: Blood pressure 136/59, pulse 52 and regular, respirations 16, O2 saturation 93% on room air, temperature 98.9. Weight 233 pounds, this is 10 pounds up from admission. HEENT: Shows her mouth to be dry. LUNGS: Clear anteriorly. HEART: Regular without murmur or gallop. ABDOMEN: Obese, soft. She has slightly high-pitched bowel sounds with splashes. EXTREMITIES: Showed no edema. LABORATORY STUDIES: White count this morning down to 8400, hemoglobin 12.3, representing resolution of some hemoconcentration. Creatinine down from 1.0 to 0.7. Flat and upright abdominal x-rays reveal continued air-fluid levels in the small bowel. ASSESSMENT: 1. Small bowel obstruction, likely secondary to adhesions from lower abdominal surgery. 2. Chronic spinal stenosis, on gabapentin, now being held. 3. Hypothyroidism. 4. Hyperlipidemia. 5. Osteoarthritis. PLAN: We will continue NG to low intermittent suction. Sips of clear liquids only without advancing her diet. Continue her IV Rocephin for urinary tract infection. I anticipate improvement in her small bowel obstruction. If not, she may need on-site surgical consultation. /[id number] RO/MODL
[2020-08-09] MEDS: Enoxaparin 40 MG/0.4 ML Syringe SUBCUT SCH (15:03)
[2020-08-09] MEDS: PEG EYEBOTH SCH (20:49)
[2020-08-09] MEDS: PROPYLENE GLYCOL EYEBOTH SCH (20:49)
[2020-08-10] MEDS: Levothyroxine 50 MCG Tab PO SCH (06:21)
[2020-08-10] MEDS: [UNRECOGNIZED DRUG - OTHER] EYEBOTH SCH ×2 (08:45→20:47)
[2020-08-10] MEDS: [UNRECOGNIZED DRUG - OTHER] EYEBOTH SCH ×2 (08:45→20:47)
[2020-08-10] MEDS: Acetaminophen 650 MG Tab.ER PO SCH ×2 (10:07→20:43)
[2020-08-10] MEDS: cefTRIAXone 1 GM Vial IVPUSH SCH (10:07)
[2020-08-10] MEDS: Lactobacillus Rhamnosus GG (Probiotic) Cap PO SCH (10:08)
[2020-08-10] MEDS: Cefdinir 300 MG Cap PO SCH ×2 (10:08→20:47)
--- NOTE | 2020-08-10 14:07 | PCM.PN ---
- General Info Date of Service: 08/10/20 Subjective Update: Sarah had NG pulled last evening, advanced to regular diet, tolerated that this morning. Denies any abdominal pain. Had 2 BM this morning, 1 loose then 1 semisolid. Found to have murmur on admission which is new, having echo today. Switch to oral antibiotics today to see if tolerates. No fever, chills. - Patient Data Vitals - Most Recent: Last Vital Signs Temp 98.9 F 08/10/20 07:52 Pulse 53 L 08/10/20 07:52 Resp 16 08/10/20 07:52 BP 169/69 H 08/10/20 07:52 Pulse Ox 94 L 08/10/20 07:52 Weight - Most Recent: 233 lb 4 oz I&O - Last 24 Hours: Intake & Output 08/09/20 08/10/20 08/10/20 22:59 06:59 14:59 Intake Total 538 175 Balance 538 175 Angelo Results Last 24 Hours: Microbiology 08/08/20 03:10 Urine Culture - Final Urine, Voided Klebsiella Pneumoniae Med Orders - Current: Current Medications Acetaminophen (Acetaminophen 650 Mg Tab.Er) 1,300 mg PO BID [facility] Last Admin: 08/10/20 10:07 Dose: 1,300 mg Documented by: Atorvastatin Calcium (Atorvastatin 10 Mg Tab) 10 mg PO BEDTIME [facility] Cefdinir (Cefdinir 300 Mg Cap) 300 mg PO BID [facility] Last Admin: 08/10/20 10:08 Dose: 300 mg Documented by: Enoxaparin Sodium (Enoxaparin 40 Mg/0.4 Ml Syringe) 40 mg SUBCUT Q24H [facility] Last Admin: 08/09/20 15:03 Dose: 40 mg Documented by: Gabapentin (Gabapentin 300 Mg Cap) 300 mg PO TID [facility] Sodium Chloride (Normal Saline) 1,000 mls @ 75 mls/hr IV ASDIRECTED [facility] Last Admin: 08/09/20 21:28 Dose: 75 mls/hr Documented by: Lactobacillus Rhamnosus (Lactobacillus Rhamnosus Gg (Probiotic) Cap) 1 cap PO DAILY [facility] Last Admin: 08/10/20 10:08 Dose: 1 cap Documented by: Levothyroxine Sodium (Levothyroxine 50 Mcg Tab) 50 mcg PO DAILY@0700 [facility] Last Admin: 08/10/20 06:21 Dose: 50 mcg Documented by: Lidocaine HCl (Lidocaine 2% Viscous Solution 15 Ml Cup) 2.5 ml PO Q4H PRN PRN Reason: throat discomfort Last Admin: 08/08/20 16:42 Dose: 2.5 ml Documented by: Morphine Sulfate (Morphine 2 Mg/Ml Syringe) 2 mg IVPUSH Q2H PRN PRN Reason: Pain Non-Formulary (Klarity *Ptom*) 1 each EYEBOTH BID [facility] Last Admin: 08/10/20 08:45 Dose: 1 each Documented by: Non-Formulary (Regener-Eyes *Ptom*) 1 each EYEBOTH BID [facility] Last Admin: 08/10/20 08:45 Dose: 1 each Documented by: Ondansetron HCl (Ondansetron 4 Mg/2 Ml Sdv) 4 mg IVPUSH Q4H PRN PRN Reason: Nausea/Vomiting Last Admin: 08/08/20 16:10 Dose: 4 mg Documented by: Propylene Glycol (Peg 400/Propylene Glycol Ophth Gel 10 Ml Bottle *Ptom*) 0 ml EYEBOTH BEDTIME [facility] Last Admin: 08/09/20 20:49 Dose: 1 drop Documented by: Propylene Glycol (Peg 400/Propylene Glycol Ophth Soln 15 Ml Bottle) 0 ml EYEBOTH ASDIRECTED PRN PRN Reason: DRY EYES Discontinued Medications Ceftriaxone Sodium (Ceftriaxone 1 Gm Vial) 1 gm IVPUSH NOW STA Stop: 08/08/20 09:09 Last Admin: 08/08/20 09:13 Dose: 1 gm Documented by: Ceftriaxone Sodium (Ceftriaxone 1 Gm Vial) 1 gm IVPUSH Q24H [facility] Last Admin: 08/10/20 10:07 Dose: Not Given Documented by: Ceftriaxone Sodium 1 gm/ (Sodium Chloride) 50 mls @ 200 mls/hr IV NOW STA Stop: 08/08/20 08:06 Last Admin: 08/08/20 09:13 Dose: Not Given Documented by: Sodium Chloride (Normal Saline) 1,000 mls @ as directed IV .STK-MED ONE Stop: 08/08/20 03:16 Iopamidol (Iopamidol 755 Mg/Ml 100 Ml Bottle) 100 ml IV . DIRECTED ONE Stop: 08/08/20 07:26 Last Admin: 08/08/20 05:00 Dose: 100 ml Documented by: Morphine Sulfate (Morphine 2 Mg/Ml Syringe) 2 mg IVPUSH .STK-MED ONE Stop: 08/08/20 03:21 Ondansetron HCl (Ondansetron 4 Mg/2 Ml Sdv) 4 mg IVPUSH .STK-MED ONE Stop: 08/08/20 03:16 Ondansetron HCl (Ondansetron 4 Mg/2 Ml Sdv) 4 mg IVPUSH .STK-MED ONE Stop: 08/08/20 04:51 Prochlorperazine Edisylate (Prochlorperazine 10 Mg/2 Ml Sdv) 10 mg IVPUSH NOW STA Stop: 08/08/20 06:49 Last Admin: 08/08/20 06:52 Dose: 10 mg Documented by: Propylene Glycol (Peg 400/Propylene Glycol Ophth Soln 15 Ml Bottle) 0 ml EYEBOTH ASDIRECTED PRN PRN Reason: DRY EYES - Exam General: Alert, Oriented, Cooperative Lungs: Clear to Auscultation, Normal Respiratory Effort Cardiovascular: Regular Rate, Regular Rhythm, Murmurs (4th ICS left sternal border, 4/6) GI/Abdominal Exam: Normal Bowel Sounds (x4), Soft, Non-Tender, No Distention. No: Guarding, Rigid Extremities: Pedal Edema (trace BLE) Peripheral Pulses: 2+: Radial (L), Radial (R) Skin: Warm, Dry, Intact - Patient Data Result Diagrams: 08/09/20 06:17 08/09/20 06:17 Angelo Results Last 24 hrs: Microbiology 08/08/20 03:10 Urine Culture - Final Urine, Voided Klebsiella Pneumoniae Sepsis Event Note - Evaluation Sepsis Screening Result: No Definite Risk - Focused Exam Vital Signs: Vital Signs Temp Pulse Resp BP Pulse Ox 08/10/20 07:52 98.9 F 53 L 16 169/69 H 94 L - Problem List & Annotations (1) SBO (small bowel obstruction) SNOMED Code(s): 264651301 Code(s): K56.609 - UNSP INTESTNL OBST, UNSP TO PARTIAL VERSUS COMPLETE OBST Status: Acute Current Visit: Yes (2) UTI (urinary tract infection) SNOMED Code(s): 58651251 Code(s): N39.0 - URINARY TRACT INFECTION, SITE NOT SPECIFIED Status: Acute Current Visit: Yes Qualifiers: Urinary tract infection type: acute cystitis Hematuria presence: without hematuria Qualified Code(s): N30.00 - Acute cystitis without hematuria (3) Newly recognized heart murmur SNOMED Code(s): 69211002 Code(s): R01.1 - CARDIAC MURMUR, UNSPECIFIED Status: Acute Current Visit: Yes - Problem List Review Problem List Initiated/Reviewed/Updated: Yes - My Orders Last 24 Hours: My Active Orders 08/10/20 09:30 Acetaminophen [Tylenol Arthritis Pain] 1,300 mg PO BID 08/10/20 10:00 Cefdinir [Omnicef] 300 mg PO BID Lactobacillus Rhamnosus GG [Culturelle] 1 cap PO DAILY 08/10/20 14:00 Gabapentin [Neurontin] 300 mg PO TID 08/10/20 21:00 atorvaSTATin [Lipitor] 10 mg PO BEDTIME - Plan Plan:: 1. SBO: NG pulled tolerating diet this morning, will see how she does today with diet advancement and restarting home oral medications. Discharge later today or tomorrow am. 2. UTI: 2 doses of Rocephin, switch to Cefdinir 300 mg bid, UC grew E. Coli p ansensitive. 3. New systolic murmur: echo today, will have her follow up with Amina Martinez as outpatient when results are back.
[2020-08-10] MEDS: Gabapentin 300 MG Cap PO SCH ×2 (14:26→20:47)
[2020-08-10] MEDS: Enoxaparin 40 MG/0.4 ML Syringe SUBCUT SCH (14:27)
[2020-08-10] MEDS: PROPYLENE GLYCOL EYEBOTH SCH (20:47)
[2020-08-10] MEDS: PEG EYEBOTH SCH (20:47)
[2020-08-10] MEDS ORDERED: atorvaSTATin 10 MG Tab PO SCH (21:00)
[2020-08-11] MEDS: Levothyroxine 50 MCG Tab PO SCH (06:04)
[2020-08-11 07:53] VITALS: BP 158/66; PULSE 54
[2020-08-11] MEDS: Lactobacillus Rhamnosus GG (Probiotic) Cap PO SCH (08:02)
[2020-08-11] MEDS: Gabapentin 300 MG Cap PO SCH (08:02)
[2020-08-11] MEDS: Cefdinir 300 MG Cap PO SCH (08:03)
[2020-08-11] MEDS: [UNRECOGNIZED DRUG - OTHER] EYEBOTH SCH (08:03)
[2020-08-11] MEDS: Acetaminophen 650 MG Tab.ER PO SCH (08:03)
[2020-08-11] MEDS: [UNRECOGNIZED DRUG - OTHER] EYEBOTH SCH (08:03)
--- NOTE | 2020-08-11 16:14 | PCM.DCSUM1 ---
Discharge Summary - Hospital Course HPI Initial Comments: Sarah presented to ER with 1 day history of abdominal pain, sweats, chills, vomiting & diarrhea. History of previous abdominal surgeries: bladder suspension, vaginal hysterectomy with bilateral salpingo-oophorectomy, incisional herniorrhaphy. CT abdomen/pelvis showed partial small bowel obstruction. No UTI symptoms on admission. No shortness of breath, chest pain. No previous history of heart murmur. See H&P for further details. Diagnosis: Stroke: No - Discharge Data Discharge Date: 08/11/20 Discharge Disposition: Home, Self-Care 01 Condition: Good - Referral to Home Health Primary Care Physician: PCP None - Discharge Diagnosis/Problem(s) (1) SBO (small bowel obstruction) SNOMED Code(s): 735692782 ICD Code: K56.609 - UNSP INTESTNL OBST, UNSP TO PARTIAL VERSUS COMPLETE OBST Status: Acute (2) UTI (urinary tract infection) SNOMED Code(s): 79118246 ICD Code: N39.0 - URINARY TRACT INFECTION, SITE NOT SPECIFIED Status: Acute Qualifiers: Urinary tract infection type: acute cystitis Hematuria presence: without hematuria Qualified Code(s): N30.00 - Acute cystitis without hematuria (3) Newly recognized heart murmur SNOMED Code(s): 03727932 ICD Code: R01.1 - CARDIAC MURMUR, UNSPECIFIED Status: Acute (4) Systolic blood pressure greater than or equal to 140 mm Hg SNOMED Code(s): 65876017 ICD Code: R03.0 - ELEVATED BLOOD-PRESSURE READING, W/O DIAGNOSIS OF HTN Status: Acute - Patient Summary/Data Hospital Course: She had NG placed on admission, was on NPO with ice chips water then clear liquids. She improved with bowel rest, NG was pulled evening of 08/09. Diet advanced to regular on 08/10, ate minimally that morning but progressively improved throughout the day and this morning without recurrence of pain. She was found to have UTI on admission, culture grew Klebsiella, pansensitive. Received 2 doses of Rocephin, changed to Cefdinir with advancement of diet, tolerated 3 doses. She also had echocardiogram for new systolic murmur, report pending. She had elevation of systolic blood pressure during hospital course with wide pulse pressure, may be indicative of aortic stenosis. No dizziness or syncopal events during hospital course. No chest pain or shortness of breath. Will have her monitor blood pressures at home and follow up with Amina Martinez NP on ThuAug 15 at 11 am to review echo report and bring in her blood pressures from home. - Patient Instructions Diet: Usual Diet as Tolerated Activity: As Tolerated Driving: May Drive Today Showering/Bathing: May Shower Notify Provider of: Fever, Increased Pain, Nausea and/or Vomiting Other/Special Instructions: Follow up with Amina Martinez [facility] on ThuAug 15 at 10am to review echo results and recheck how you are doing. - Discharge Plan *PRESCRIPTION DRUG MONITORING PROGRAM REVIEWED*: Not Applicable *COPY OF PRESCRIPTION DRUG MONITORING REPORT IN PATIENT FIFI: Not Applicable Prescriptions/Med Rec: Cefdinir [Omnicef] 300 mg PO BID 2 Days #3 cap Home Medications: Home Meds Levothyroxine [Synthroid] 50 mcg PO DAILY@0700 10/13/13 [History] Gabapentin [Neurontin] 300 mg PO TID 01/27/14 [History] Acetaminophen [Acetaminophen ER] 1,300 mg PO BID 07/24/20 [History] Lactobacillus Acidophilus [Probiotic Acidophilus] 1.5 mg PO DAILY 07/24/20 [History] atorvaSTATin [Lipitor] 10 mg PO BEDTIME 07/24/20 [History] Chondroitin Sulf A Sodium/Pf [Klarity(Chondroitin) 2.5 mg/ml] 1 drop EYEBOTH BID 08/08/20 [History] Non-Formulary Medication [NF Drug] 1 drop EYEBOTH BID 08/08/20 [History] PEG 400/Propylene Glycol [Systane Lubricant Gel] 1 applic EYEBOTH BEDTIME 08/08/20 [History] Propylene Glycol/Peg 400 [Systane Ultra 0.4-0.3% Eye Drp] 1 drop EYEBOTH ASDIRECTED PRN 08/08/20 [History] Cefdinir [Omnicef] 300 mg PO BID 2 Days #3 cap 08/11/20 [Rx] Patient Handouts: High-Fiber Diet, Cefdinir Capsules Referrals: Amina Martinez PA-C [Ordering Only Provider] - (11 am with Amina Martinez on ThursdayAugust 15) - Discharge Summary/Plan Comment DC Time >30 min.: No - General Info Date of Service: 08/11/20 Subjective Update: Tolerated her diet yesterday, increased intake by evening yesterday. Did well with breakfast this morning. No worsening of abdominal pain. Has had more formed bowel movements. No vomiting or nausea. - Patient Data Vitals - Most Recent: Last Vital Signs Temp 97.7 F 08/11/20 07:50 Pulse 54 L 08/11/20 07:50 Resp 16 08/11/20 07:50 BP 158/66 H 08/11/20 07:50 Pulse Ox 97 08/11/20 07:50 Weight - Most Recent: 233 lb 4 oz Med Orders - Current: Current Medications Discontinued Medications Acetaminophen (Acetaminophen 650 Mg Tab.Er) 1,300 mg PO BID [facility] Last Admin: 08/11/20 08:03 Dose: Not Given Documented by: Atorvastatin Calcium (Atorvastatin 10 Mg Tab) 10 mg PO BEDTIME [facility] Last Admin: 08/10/20 20:47 Dose: 10 mg Documented by: Cefdinir (Cefdinir 300 Mg Cap) 300 mg PO BID [facility] Last Admin: 08/11/20 08:03 Dose: 300 mg Documented by: Ceftriaxone Sodium (Ceftriaxone 1 Gm Vial) 1 gm IVPUSH NOW STA Stop: 08/08/20 09:09 Last Admin: 08/08/20 09:13 Dose: 1 gm Documented by: Ceftriaxone Sodium (Ceftriaxone 1 Gm Vial) 1 gm IVPUSH Q24H [facility] Last Admin: 08/10/20 10:07 Dose: Not Given Documented by: Enoxaparin Sodium (Enoxaparin 40 Mg/0.4 Ml Syringe) 40 mg SUBCUT Q24H [facility] Last Admin: 08/10/20 14:27 Dose: 40 mg Documented by: Gabapentin (Gabapentin 300 Mg Cap) 300 mg PO TID [facility] Last Admin: 08/11/20 08:02 Dose: 300 mg Documented by: Sodium Chloride (Normal Saline) 1,000 mls @ 75 mls/hr IV ASDIRECTED [facility] Last Admin: 08/09/20 21:28 Dose: 75 mls/hr Documented by: Ceftriaxone Sodium 1 gm/ (Sodium Chloride) 50 mls @ 200 mls/hr IV NOW STA Stop: 08/08/20 08:06 Last Admin: 08/08/20 09:13 Dose: Not Given Documented by: Sodium Chloride (Normal Saline) 1,000 mls @ as directed IV .STK-MED ONE Stop: 08/08/20 03:16 Iopamidol (Iopamidol 755 Mg/Ml 100 Ml Bottle) 100 ml IV . DIRECTED ONE Stop: 08/08/20 07:26 Last Admin: 08/08/20 05:00 Dose: 100 ml Documented by: Lactobacillus Rhamnosus (Lactobacillus Rhamnosus Gg (Probiotic) Cap) 1 cap PO DAILY [facility] Last Admin: 08/11/20 08:02 Dose: 1 cap Documented by: Levothyroxine Sodium (Levothyroxine 50 Mcg Tab) 50 mcg PO DAILY@0700 [facility] Last Admin: 08/11/20 06:04 Dose: 50 mcg Documented by: Lidocaine HCl (Lidocaine 2% Viscous Solution 15 Ml Cup) 2.5 ml PO Q4H PRN PRN Reason: throat discomfort Last Admin: 08/08/20 16:42 Dose: 2.5 ml Documented by: Morphine Sulfate (Morphine 2 Mg/Ml Syringe) 2 mg IVPUSH .STK-MED ONE Stop: 08/08/20 03:21 Morphine Sulfate (Morphine 2 Mg/Ml Syringe) 2 mg IVPUSH Q2H PRN PRN Reason: Pain Non-Formulary (Klarity *Ptom*) 1 each EYEBOTH BID [facility] Last Admin: 08/11/20 08:03 Dose: 1 each Documented by: Non-Formulary (Regener-Eyes *Ptom*) 1 each EYEBOTH BID [facility] Last Admin: 08/11/20 08:03 Dose: 1 each Documented by: Ondansetron HCl (Ondansetron 4 Mg/2 Ml Sdv) 4 mg IVPUSH .STK-MED ONE Stop: 08/08/20 03:16 Ondansetron HCl (Ondansetron 4 Mg/2 Ml Sdv) 4 mg IVPUSH .STK-MED ONE Stop: 08/08/20 04:51 Ondansetron HCl (Ondansetron 4 Mg/2 Ml Sdv) 4 mg IVPUSH Q4H PRN PRN Reason: Nausea/Vomiting Last Admin: 08/08/20 16:10 Dose: 4 mg Documented by: Prochlorperazine Edisylate (Prochlorperazine 10 Mg/2 Ml Sdv) 10 mg IVPUSH NOW STA Stop: 08/08/20 06:49 Last Admin: 08/08/20 06:52 Dose: 10 mg Documented by: Propylene Glycol (Peg 400/Propylene Glycol Ophth Gel 10 Ml Bottle *Ptom*) 0 ml EYEBOTH BEDTIME [facility] Last Admin: 08/10/20 20:47 Dose: 1 drop Documented by: Propylene Glycol (Peg 400/Propylene Glycol Ophth Soln 15 Ml Bottle) 0 ml EYEBOTH ASDIRECTED PRN PRN Reason: DRY EYES Propylene Glycol (Peg 400/Propylene Glycol Ophth Soln 15 Ml Bottle) 0 ml EYE BOTH ASDIRECTED PRN PRN Reason: DRY EYES - Exam General: Reports: Alert, Oriented, Cooperative, No Acute Distress Lungs: Reports: Clear to Auscultation, Normal Respiratory Effort Cardiovascular: Reports: Regular Rate, Regular Rhythm, Murmurs (3/6 systolic murmur 4th ICS, left sternal border) GI/Abdominal Exam: Normal Bowel Sounds, Soft, Non-Tender, No Distention Extremities: Pedal Edema (trace BLE)
== END 2020-08-11 12:40 | disposition home or self-care (01) | DRG 389 ==
LOC: FB.ED 02:45 → FB.MS 13:53
PROVIDERS: ADMIT Emergency Medicine; ATTEND Family Medicine
DX: K56.609 Unspecified intestinal obstruction, unspecified as to partial versus complete obstruction (principal); K56.51 Intestinal adhesions [bands], with partial obstruction; N30.01 Acute cystitis with hematuria; R01.1 Cardiac murmur, unspecified; R03.0 Elevated blood-pressure reading, without diagnosis of hypertension; B96.1 Klebsiella pneumoniae [K. pneumoniae] as the cause of diseases classified elsewhere; M19.90 Unspecified osteoarthritis, unspecified site; E78.5 Hyperlipidemia, unspecified; E03.9 Hypothyroidism, unspecified; M54.9 Dorsalgia, unspecified; Z20.822 Contact with and (suspected) exposure to COVID-19; K80.20 Calculus of gallbladder without cholecystitis without obstruction; K21.9 Gastro-esophageal reflux disease without esophagitis; Z96.651 Presence of right artificial knee joint; M17.12 Unilateral primary osteoarthritis, left knee; M54.5 Low back pain; G89.29 Other chronic pain; L30.4 Erythema intertrigo; M35.00 Sjogren syndrome, unspecified; E78.00 Pure hypercholesterolemia, unspecified; M81.0 Age-related osteoporosis without current pathological fracture; R32 Unspecified urinary incontinence; Z90.710 Acquired absence of both cervix and uterus; Z79.890 Hormone replacement therapy; Z79.899 Other long term (current) drug therapy; Z88.0 Allergy status to penicillin
CPT/HCPCS: 36415; 74019; 74177; 80048; 80053; 81001; 82150; 83605; 83690; 85025; 87086; 87088; 87186; 93306; 96374; 96375; 99285; 99285-25; A9270-GY; J0696; J0780; J1650; J2270; J2405; J7030; Q9967; U0002

== ENCOUNTER 2023-06-21 12:01 | Emergency (ER) | payer MEDICARE ==
[2023-06-21] MEDS ORDERED: Sodium Chloride 0.9% 10 ML Syringe FLUSH PRN (12:37)
[2023-06-21] MEDS: Sodium Chloride 0.9% 1,000 ML IV SCH (12:55)
[2023-06-21 12:56] LABS: BASOPHILS PERCENT AUTO 0.3 % (0.2-1.5); EOSINOPHILS PERCENT AUTO 0.2 % (0.6-8.1); HEMOGLOBIN 12.1 g/dL (11.4-15.5); LYMPHOCYTES ABSOLUTE AUTO 1.2 x10-3/uL (1.0-4.4); MEAN CORPUSCULAR HEMOGLOBIN 28.9 pg (23.9-33.9); MEAN CORPUSCULAR HGB CONC 33.7 g/dL (31.9-34.8); MEAN CORPUSCULAR VOLUME 85.6 fL (76.7-100.5); MEAN PLATELET VOLUME 6.1 fL (7.1-12.4); MONOCYTES ABSOLUTE AUTO 0.6 x10-3/uL (0.3-1.0); MONOCYTES PERCENT AUTO 6.1 % (4.4-15.7); NEUTROPHILS PERCENT AUTO 81.4 % (30.8-76.2); PLATELET COUNT,PLT 570 x10(3)uL (151-488); RED BLOOD CELL COUNT 4.21 x10(6)uL (3.60-5.20); RED CELL DISTRIBUTION WIDTH 14.1 % (12.3-16.5); WHITE BLOOD CELL COUNT,WBC 9.9 x10-3/uL (3.0-10.3)
[2023-06-21 13:05] LABS: A/G RATIO 0.7; ALANINE AMINOTRANSFERASE,ALT 14 U/L (12-36); ALKALINE PHOSPHATASE 104 IU/L (56-112); ASPARTATE AMNIOTRANSFERASE,AST 17 IU/L (5-25); BILIRUBIN TOTAL 0.5 mg/dL (0.1-1.3); BLOOD UREA NITROGEN,BUN 7 mg/dL (7-18); CALCIUM 9.2 mg/dL (8.6-10.2); CARBON DIOXIDE,CO2 28 mmol/L (21-32); CHLORIDE,CL 85 mmol/L (100-110); CREATININE 0.5 mg/dL (0.55-1.02); ESTIMATED GFR 94 mL/min (>60); GLUCOSE RANDOM 102 mg/dL (80-116); POTASSIUM,K 3.7 mmol/L (3.5-5.3); PROTEIN TOTAL,TP 7.5 g/dL (6.0-8.0); SODIUM,NA 121 mmol/L (135-145)
[2023-06-21 13:08] LABS: LACTIC ACID 1.1 mmol/L (0.4-2.0)
[2023-06-21 13:55] LABS: BILIRUBIN,URINE NEGATIVE (NEGATIVE); GLUCOSE,URINE NORMAL (NORMAL); KETONES,URINE 15 mg/dL (NEGATIVE); LEUKOCYTE ESTERASE,URINE NEGATIVE (NEGATIVE); NITRITE,URINE NEGATIVE (NEGATIVE); OCCULT BLOOD,URINE NEGATIVE (NEGATIVE); PROTEIN,URINE NEGATIVE (NEGATIVE); UROBILINOGEN,URINE NORMAL (NEGATIVE)
[2023-06-21 14:00] LABS: APPEARANCE,URINE CLEAR (CLEAR); BACTERIA,URINE FEW (NS); COLOR,URINE YELLOW (YELLOW); RBC,URINE 0-5 (0-5); SQUAMOUS EPITHELIAL CELLS,UR FEW (NS,R,O); WBC,URINE 0-5 (0-5)
[2023-06-21 14:30] LABS: INFLUENZA A NAA NEGATIVE (NEGATIVE); INFLUENZA B NAA NEGATIVE (NEGATIVE); RESPIRATORY SYNCYTIAL VIR NAA NEGATIVE (NEGATIVE)
[2023-06-21 14:37] LABS: CORONAVIRUS COVID-19 NAA NEGATIVE (NEGATIVE)
[2023-06-21] MEDS: traMADol 50 MG Tab PO ONE (15:45)
[2023-06-21] MEDS: Ketorolac 30 MG/ML SDV IVPUSH ONE (15:47)
[2023-06-21 17:34] VITALS: BP 149/65; PULSE 64
== END 2023-06-21 16:15 | disposition home or self-care (01) ==
LOC: FB.ED 12:01
DX: N39.0 Urinary tract infection, site not specified (principal); E87.1 Hypo-osmolality and hyponatremia; E78.00 Pure hypercholesterolemia, unspecified; K21.9 Gastro-esophageal reflux disease without esophagitis; E03.9 Hypothyroidism, unspecified; Z88.0 Allergy status to penicillin; Z88.8 Allergy status to other drugs, medicaments and biological substances; Z88.1 Allergy status to other antibiotic agents; Z90.710 Acquired absence of both cervix and uterus; Z79.899 Other long term (current) drug therapy
CPT/HCPCS: 0241U; 36415; 80053; 81001; 83605; 84484; 85025; 96361; 96374; 99284; 99284-25; J1885; J7030

== ENCOUNTER 2023-06-22 17:08 | Observation (INO) | payer MEDICARE ==
[2023-06-22] MEDS ORDERED: Sodium Chloride 0.9% 10 ML Syringe FLUSH PRN (17:10)
[2023-06-22 17:34] LABS: BASOPHILS ABSOLUTE AUTO 0.1 x10-3/uL (0.0-0.1); BASOPHILS PERCENT AUTO 0.5 % (0.2-1.5); EOSINOPHILS PERCENT AUTO 0.3 % (0.6-8.1); HEMATOCRIT 35.9 % (34.2-48.2); HEMOGLOBIN 11.8 g/dL (11.4-15.5); LYMPHOCYTES ABSOLUTE AUTO 1.1 x10-3/uL (1.0-4.4); LYMPHOCYTES PERCENT AUTO 10.9 % (18.4-52.1); MEAN CORPUSCULAR HEMOGLOBIN 27.9 pg (23.9-33.9); MEAN CORPUSCULAR HGB CONC 32.8 g/dL (31.9-34.8); MEAN PLATELET VOLUME 6.2 fL (7.1-12.4); MONOCYTES ABSOLUTE AUTO 0.6 x10-3/uL (0.3-1.0); MONOCYTES PERCENT AUTO 5.8 % (4.4-15.7); NEUTROPHILS ABSOLUTE AUTO 8.3 x10-3/uL (1.5-6.3); NEUTROPHILS PERCENT AUTO 82.5 % (30.8-76.2); PLATELET COUNT,PLT 558 x10(3)uL (151-488); RED BLOOD CELL COUNT 4.22 x10(6)uL (3.60-5.20); RED CELL DISTRIBUTION WIDTH 14.2 % (12.3-16.5); WHITE BLOOD CELL COUNT,WBC 10.1 x10-3/uL (3.0-10.3)
[2023-06-22 17:41] LABS: A/G RATIO 0.7; ALANINE AMINOTRANSFERASE,ALT 16 U/L (12-36); ALKALINE PHOSPHATASE 103 IU/L (56-112); AMYLASE 21 U/L (25-115); ASPARTATE AMNIOTRANSFERASE,AST 22 IU/L (5-25); BILIRUBIN TOTAL 0.6 mg/dL (0.1-1.3); BLOOD UREA NITROGEN,BUN 5 mg/dL (7-18); CALCIUM 8.7 mg/dL (8.6-10.2); CARBON DIOXIDE,CO2 25 mmol/L (21-32); CREATININE 0.5 mg/dL (0.55-1.02); EST CRCL DRUG DOSING (CG) 84.36 mL/min; ESTIMATED GFR 94 mL/min (>60); GLUCOSE RANDOM 99 mg/dL (80-116); POTASSIUM,K 3.6 mmol/L (3.5-5.3); PROTEIN TOTAL,TP 7.3 g/dL (6.0-8.0)
[2023-06-22] MEDS: Prochlorperazine 10 MG/2 ML SDV IM ONE (17:42)
[2023-06-22] MEDS: Ketorolac 30 MG/ML SDV IM ONE (17:42)
[2023-06-22] MEDS: Prochlorperazine 10 MG in Sodium Chloride 0.9% 50 ML IV ONE (17:44)
[2023-06-22] MEDS: Ketorolac 30 MG/ML SDV IVPUSH ONE (17:44)
[2023-06-22 17:45] LABS: CHLORIDE,CL 80 mmol/L (100-110); SODIUM,NA 115 mmol/L (135-145)
[2023-06-22] MEDS: Prochlorperazine 10 MG/2 ML SDV IVPUSH ONE (17:45)
[2023-06-22] MEDS: Ondansetron 4 MG/2 ML SDV IVPUSH ONE (18:24)
[2023-06-22] MEDS: LORazepam 2 MG/ML SDV IVPUSH ONE (18:25)
[2023-06-22] MEDS: SUMAtriptan 6 MG/0.5 ML SDV SUBCUT ONE (18:26)
[2023-06-22] MEDS: Sodium Chloride 0.9% 1,000 ML IV SCH ×2 (18:45→21:43)
[2023-06-22] MEDS: Metoclopramide 10 MG/2 ML SDV IVPUSH ONE (19:22)
[2023-06-22] MEDS: Sulfamethoxazole/Trimethoprim 800-160 MG Tab PO ONE (19:31)
[2023-06-22] MEDS: Acetaminophen/oxyCODONE 325-5 MG Tab PO STA (19:42)
[2023-06-22] MEDS ORDERED: Ibuprofen 200 MG Tab PO PRN (19:46)
[2023-06-22] MEDS ORDERED: Docusate Sodium 100 MG Cap PO PRN (19:46)
[2023-06-22] MEDS: Alum Hydroxide/Mag Hydroxide 15 ML, Lidocaine 2% 15 ML PO ONE (20:26)
[2023-06-22] MEDS: Enoxaparin 40 MG/0.4 ML Syringe SUBCUT SCH (21:29)
[2023-06-22] MEDS: atorvaSTATin 10 MG Tab PO SCH (21:29)
[2023-06-22] MEDS: Gabapentin 300 MG Cap PO SCH ×2 (21:30→21:35)
[2023-06-22] MEDS: Gabapentin 300 MG Cap PO ONE (21:30)
[2023-06-22] MEDS: Sulfamethoxazole/Trimethoprim 800-160 MG Tab PO SCH (21:31)
[2023-06-22] MEDS: Acetaminophen 650 MG Tab.ER PO SCH (21:34)
[2023-06-23] MEDS: Ketorolac 30 MG/ML SDV IM PRN (04:11)
[2023-06-23] MEDS: Levothyroxine 88 MCG Tab PO SCH (06:43)
[2023-06-23] MEDS: Saccharomyces Boulardii (Probiotic) 250 MG Cap PO SCH (09:02)
[2023-06-23] MEDS: Multivitamin Tab PO SCH (09:03)
[2023-06-23] MEDS: Psyllium Husk Powder Sugar Free 5.85 GM Packet PO SCH (09:03)
[2023-06-23] MEDS: Cholecalciferol (Vitamin D3) 25 MCG Tab PO SCH (09:07)
[2023-06-23] MEDS ORDERED: Polyethylene Glycol 3350 Powder 17 GM Packet PO PRN (09:17)
[2023-06-23] MEDS ORDERED: Carboxymethylcellulose Sodium 0.5% Ophth Soln 15 ML Bottle EYEBOTH PRN (09:26)
[2023-06-23] MEDS ORDERED: cefTRIAXone 1 GM Vial IVPUSH SCH (10:45)
[2023-06-23] MEDS: Lisinopril 20 MG Tab PO SCH (11:12)
[2023-06-23] MEDS: Gabapentin 300 MG Cap PO SCH (11:12)
[2023-06-23 14:23] LABS: BLOOD UREA NITROGEN,BUN 5 mg/dL (7-18); BUN/CREATININE RATIO 12.5 (9-20); CALCIUM 8.1 mg/dL (8.6-10.2); CARBON DIOXIDE,CO2 26 mmol/L (21-32); CHLORIDE,CL 92 mmol/L (100-110); CREATININE 0.4 mg/dL (0.55-1.02); EST CRCL DRUG DOSING (CG) 105.45 mL/min; ESTIMATED GFR 99 mL/min (>60); GLUCOSE RANDOM 98 mg/dL (80-116); POTASSIUM,K 3.6 mmol/L (3.5-5.3); SODIUM,NA 124 mmol/L (135-145)
[2023-06-23] MEDS: Acetaminophen/HYDROcodone 325-5 MG Tab PO PRN (16:47)
[2023-06-23] MEDS ORDERED: Sulfamethoxazole/Trimethoprim 800-160 MG Tab PO SCH (21:00)
[2023-06-24 06:42] LABS: BASOPHILS PERCENT AUTO 0.6 % (0.2-1.5); EOSINOPHILS PERCENT AUTO 0.5 % (0.6-8.1); HEMATOCRIT 30.5 % (34.2-48.2); HEMOGLOBIN 10.1 g/dL (11.4-15.5); LYMPHOCYTES ABSOLUTE AUTO 0.9 x10-3/uL (1.0-4.4); LYMPHOCYTES PERCENT AUTO 11.8 % (18.4-52.1); MEAN CORPUSCULAR HEMOGLOBIN 28.7 pg (23.9-33.9); MEAN CORPUSCULAR HGB CONC 33.3 g/dL (31.9-34.8); MEAN CORPUSCULAR VOLUME 86.2 fL (76.7-100.5); MEAN PLATELET VOLUME 6.1 fL (7.1-12.4); MONOCYTES ABSOLUTE AUTO 0.7 x10-3/uL (0.3-1.0); MONOCYTES PERCENT AUTO 9.6 % (4.4-15.7); NEUTROPHILS PERCENT AUTO 77.5 % (30.8-76.2); PLATELET COUNT,PLT 445 x10(3)uL (151-488); RED BLOOD CELL COUNT 3.54 x10(6)uL (3.60-5.20); RED CELL DISTRIBUTION WIDTH 14.1 % (12.3-16.5); WHITE BLOOD CELL COUNT,WBC 7.7 x10-3/uL (3.0-10.3)
[2023-06-24 06:51] LABS: BLOOD UREA NITROGEN,BUN 6 mg/dL (7-18); CALCIUM 7.9 mg/dL (8.6-10.2); CARBON DIOXIDE,CO2 24 mmol/L (21-32); CHLORIDE,CL 103 mmol/L (100-110); CREATININE 0.5 mg/dL (0.55-1.02); EST CRCL DRUG DOSING (CG) 84.36 mL/min; ESTIMATED GFR 94 mL/min (>60); GLUCOSE RANDOM 85 mg/dL (80-116); POTASSIUM,K 3.4 mmol/L (3.5-5.3); SODIUM,NA 134 mmol/L (135-145)
[2023-06-24] MEDS ORDERED: Cholecalciferol (Vitamin D3) 5,000 UNIT Cap PO SCH (09:00)
[2023-06-24] MEDS: Cholecalciferol (Vitamin D3) 5,000 UNIT Cap PO SCH (09:24)
[2023-06-24 11:26] VITALS: BP 120/49; PULSE 68
[2023-06-24 20:04] LABS: OSMOLALITY 249 mOsm/kg (280-303)
== END 2023-06-24 11:10 | disposition home or self-care (01) ==
LOC: FB.ED 17:08 → FB.MS 19:39
PROVIDERS: ADMIT Emergency Medicine; ATTEND Family Medicine
DX: E87.1 Hypo-osmolality and hyponatremia (principal); R51.9 Headache, unspecified; N39.0 Urinary tract infection, site not specified; E03.9 Hypothyroidism, unspecified; I10 Essential (primary) hypertension; K21.9 Gastro-esophageal reflux disease without esophagitis; E78.00 Pure hypercholesterolemia, unspecified; Z79.890 Hormone replacement therapy; Z79.899 Other long term (current) drug therapy; Z88.0 Allergy status to penicillin; Z88.1 Allergy status to other antibiotic agents
CPT/HCPCS: 36415; 70450; 80048; 80053; 82150; 83690; 83930; 85025; 96361; 96372; 96374; 96375; 99222; 99238; 99285; 99285-25; A9270-GY; G0378; J0780; J1650; J1885; J2060; J2405; J2765; J3030; J7030

== ENCOUNTER 2023-08-28 13:14 | Emergency (ER) | payer MEDICARE ==
[2023-08-28 13:52] LABS: BASOPHILS ABSOLUTE AUTO 0.1 x10-3/uL (0.0-0.1); BASOPHILS PERCENT AUTO 0.5 % (0.2-1.5); EOSINOPHILS PERCENT AUTO 0.2 % (0.6-8.1); HEMATOCRIT 37.2 % (34.2-48.2); HEMOGLOBIN 12.3 g/dL (11.4-15.5); LYMPHOCYTES ABSOLUTE AUTO 1.2 x10-3/uL (1.0-4.4); LYMPHOCYTES PERCENT AUTO 11.3 % (18.4-52.1); MEAN CORPUSCULAR HEMOGLOBIN 29.6 pg (23.9-33.9); MEAN CORPUSCULAR HGB CONC 33.2 g/dL (31.9-34.8); MEAN CORPUSCULAR VOLUME 89.1 fL (76.7-100.5); MONOCYTES ABSOLUTE AUTO 0.7 x10-3/uL (0.3-1.0); MONOCYTES PERCENT AUTO 6.8 % (4.4-15.7); NEUTROPHILS ABSOLUTE AUTO 8.4 x10-3/uL (1.5-6.3); NEUTROPHILS PERCENT AUTO 81.2 % (30.8-76.2); PLATELET COUNT,PLT 613 x10(3)uL (151-488); RED BLOOD CELL COUNT 4.17 x10(6)uL (3.60-5.20); RED CELL DISTRIBUTION WIDTH 15.8 % (12.3-16.5); WHITE BLOOD CELL COUNT,WBC 10.4 x10-3/uL (3.0-10.3)
[2023-08-28] MEDS: Ondansetron 4 MG/2 ML SDV IVPUSH ONE (14:03)
[2023-08-28] MEDS: Sodium Chloride 0.9% 1,000 ML IV ONE (14:03)
[2023-08-28] MEDS: HYDROmorphone 2 MG/ML SDV IVPUSH ONE (14:04)
[2023-08-28 14:08] LABS: TROPONIN I 12.1 pg/mL (4.0-60.3)
[2023-08-28 14:18] LABS: A/G RATIO 0.6; ALANINE AMINOTRANSFERASE,ALT 14 U/L (12-36); ALBUMIN 2.4 g/dL (3.2-4.6); ALKALINE PHOSPHATASE 147 IU/L (56-112); ASPARTATE AMNIOTRANSFERASE,AST 22 IU/L (5-25); BILIRUBIN TOTAL 0.5 mg/dL (0.1-1.3); BLOOD UREA NITROGEN,BUN 6 mg/dL (7-18); BUN/CREATININE RATIO 8.6 (9-20); CALCIUM 8.9 mg/dL (8.6-10.2); CARBON DIOXIDE,CO2 25 mmol/L (21-32); CHLORIDE,CL 92 mmol/L (100-110); CREATININE 0.7 mg/dL (0.55-1.02); EST CRCL DRUG DOSING (CG) 58.01 mL/min; ESTIMATED GFR 86 mL/min (>60); GLUCOSE RANDOM 90 mg/dL (80-116); POTASSIUM,K 4.2 mmol/L (3.5-5.3); PROTEIN TOTAL,TP 6.8 g/dL (6.0-8.0); SODIUM,NA 128 mmol/L (135-145)
[2023-08-28] MEDS: Iopamidol 755 Mg/ML 100 ML Bottle IV SCH (14:28)
[2023-08-28 15:32] LABS: APPEARANCE,URINE CLEAR (CLEAR); BACTERIA,URINE FEW (NS); BILIRUBIN,URINE NEGATIVE (NEGATIVE); COLOR,URINE YELLOW (YELLOW); GLUCOSE,URINE NORMAL (NORMAL); KETONES,URINE 15 mg/dL (NEGATIVE); LEUKOCYTE ESTERASE,URINE NEGATIVE (NEGATIVE); NITRITE,URINE NEGATIVE (NEGATIVE); OCCULT BLOOD,URINE NEGATIVE (NEGATIVE); PROTEIN,URINE NEGATIVE (NEGATIVE); RBC,URINE 0-5 (0-5); SQUAMOUS EPITHELIAL CELLS,UR FEW (NS,R,O); UROBILINOGEN,URINE NORMAL (NEGATIVE); WBC,URINE 0-5 (0-5)
[2023-08-28] MEDS: Alum Hydroxide/Mag Hydroxide 15 ML, Lidocaine 2% 15 ML PO ONE (15:34)
[2023-08-28 16:47] VITALS: BP 149/78; PULSE 75
== END 2023-08-28 16:00 | disposition home or self-care (01) ==
LOC: FB.ED 13:14
DX: K29.70 Gastritis, unspecified, without bleeding (principal); E87.1 Hypo-osmolality and hyponatremia; I10 Essential (primary) hypertension; E78.00 Pure hypercholesterolemia, unspecified; E03.9 Hypothyroidism, unspecified; E66.9 Obesity, unspecified; Z90.710 Acquired absence of both cervix and uterus; Z68.30 Body mass index [BMI] 30.0-30.9, adult; Z79.899 Other long term (current) drug therapy; Z79.890 Hormone replacement therapy; Z88.0 Allergy status to penicillin; Z88.2 Allergy status to sulfonamides; Z88.1 Allergy status to other antibiotic agents; Z88.8 Allergy status to other drugs, medicaments and biological substances
CPT/HCPCS: 36415; 74177; 80053; 81001; 83690; 84484; 85025; 93005; 96361; 96374; 96375; 99284; A9270; J1170; J2405; J7030; Q9967